=== PATIENT | male | born 1970 | race Two or more races ===

== ENCOUNTER 2018-03-30 16:37 | Emergency (ER) | payer OTHER ==
[~2018-03-30] VITALS: Ht 165.1 cm; Wt 75.7 kg
[2018-03-30 17:09] LABS: BASOPHILS # (AUTO) 0.02 x10^3/uL (0-0.1); BASOPHILS % (AUTO) 0 % (0-1); EOSINOPHILS # (AUTO) 0.09 x10^3/uL (0-0.4); EOSINOPHILS % (AUTO) 1 % (1-7); LYMPHOCYTES # (AUTO) 2.36 x10^3/uL (1-3.4); LYMPHOCYTES % (AUTO) 29 % (22-44); MD NO; MEAN CORPUSCULAR HEMOGLOBIN 28.5 pg (27.5-34.5); MEAN CORPUSCULAR HGB CONC 33.6 g/dL (33.2-36.2); MEAN CORPUSCULAR VOLUME 84.8 fL (81-97); MEAN PLATELET VOLUME 7.1 fL (7.4-10.4); MONOCYTES # (AUTO) 0.57 x10^3/uL (0.2-0.8); MONOCYTES % (AUTO) 7 % (2-9); NEUTROPHILS # (AUTO) 5.22 x10^3/uL (1.8-6.8); NEUTROPHILS % (AUTO) 63 % (42-75); PLATELET COUNT 348 x10^3/uL (130-400); RED CELL DISTRIBUTION WIDTH 13.9 % (9.4-14.8)
[2018-03-30 17:19] LABS: ANION GAP 5 mmol/L (5-15); CALCIUM 8.9 mg/dL (8.5-10.1); CHLORIDE 109 mmol/L (98-107); CREATININE 1.37 mg/dL (0.7-1.3)
[2018-03-30] MEDS ORDERED: AMLO10TA4 PO (19:05)
[2018-03-30] MEDS ORDERED: FEBU80TA2 PO (19:05)
[2018-03-30 19:39] VITALS: BP 179/102
== END 2018-03-30 19:51 | disposition home or self-care (01) ==
LOC: ED 19:45
DX: I10 Essential (primary) hypertension (principal)
CPT/HCPCS: 36415; 71046; 80048; 85025; 93005; 99285